=== PATIENT | female | born 1950 | race Caucasian/White ===

== ENCOUNTER 2019-08-06 14:56 | Outpatient (CLI) | payer MEDICARE, OTHER, SELFPAY ==
--- NOTE | 2019-08-06 15:37 | MM_ITS ---
WS: [id number] BILATERAL SCREENING DIGITAL MAMMOGRAM WITH CAD HISTORY: SCREENING COMPARISON: 06/05/2018 and 05/16/2017 Bilateral CC and MLO views submitted. Computer aided detection analyzed. Breast composition: The breasts are heterogeneously dense, which may obscure small masses. No suspici ous masses, microcalcifications or architectural distortion. Asymmetries are stable within each breas t. MM/[place] [id number] IMPRESSION: BI-RADS: 2-Benign FOLLOW UP: 1 Year Follow-up
== END 2019-08-06 14:57 | disposition home or self-care (01) ==
LOC: RADSHAW 15:10
PROVIDERS: Family Provider Family Medicine; PCP Family Medicine; Visit Provider Family Medicine
DX: Z12.31 Encounter for screening mammogram for malignant neoplasm of breast (principal)
CPT/HCPCS: 77067

== ENCOUNTER → 2019-09-26 10:38 | Outpatient (BNVA) | payer MEDICARE, OTHER, SELFPAY | PROVIDERS: Family Provider Family Medicine; PCP Family Medicine; Visit Provider Nurse Practitioner Family | DX: J02.9 Acute pharyngitis, unspecified (principal); J06.9 Acute upper respiratory infection, unspecified; B96.89 Other specified bacterial agents as the cause of diseases classified elsewhere | CPT/HCPCS: 87081; 87804; 87880 ==

== ENCOUNTER 2020-08-08 09:02 | Outpatient (CLI) | payer MEDICARE, OTHER, SELFPAY ==
--- NOTE | 2020-08-08 09:06 | MM_ITS ---
WS: [id number] BILATERAL DIGITAL SCREENING MAMMOGRAPHY WITH CAD CLINICAL INFORMATION: SCREENING HISTORY: Screening mammogram. No current complaints. COMPARISON: August 06, 2019 TECHNIQUE: Bilateral CC and MLO views. FINDINGS: Scattered fibroglandular densities bilaterally. No suspicious focal mass, asymmetry, calcifications, or architectural distortion. No evidence of malignancy. Punctate calcifications. MM/[place] [id number] IMPRESSION: BI-RADS: 2-Benign FOLLOW UP: 1 Year Follow-up Recommend return to annual screening mammography.
== END 2020-08-08 09:03 | disposition home or self-care (01) ==
LOC: RADSHAW 09:05
PROVIDERS: Family Provider Family Medicine; PCP Family Medicine; Visit Provider Family Medicine
DX: Z12.31 Encounter for screening mammogram for malignant neoplasm of breast (principal)
CPT/HCPCS: 77067

== ENCOUNTER 2021-05-16 10:48 | Emergency (ER) | payer MEDICARE, OTHER, SELFPAY ==
[2021-05-16 10:49] VITALS: BP 138/79; PULSE 60; RESP 20; TEMP 36.8; O2SAT 90; BMI 31.8
--- NOTE | 2021-05-16 11:01 | XR_ITS ---
WS: [id number] XR chest 1V portable [id number] REASON FOR EXAM: dyspnea/cough FINDINGS: Suboptimal inspiration. Moderate tortuosity and ectasia of the thoracic aorta. Normal heart size. Equivocal infiltrative opacities in the left lung base. Accentuated by poor inspiratory effort. No other significant chest abnormality. XR/XR chest 1V portable [id number] IMPRESSION: Possible infiltrative change in the left lower lung. Follow-up examination [place]adwick mmended.
[2021-05-16 11:02] LABS: Glucose Point of Care 125 mg/dL (70-110)
--- NOTE | 2021-05-16 11:03 | ECG_ITS ---
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 Measurements Intervals [place] Rate: 61 P: 41 VT: 196 QRS: -1 QRSD: 90 T: 53 QT: 436 QTc: 441 Interpretive Statements SINUS RHYTHM LOW QRS VOLTAGE IN PRECORDIAL LEADS [QRS DEFLECTION < 1.0 mV IN CHEST LEADS] POSSIBLE ANTERIOR MYOCARDIAL INFARCTION , PROBABLY OLD [30 ms Q WAVE IN V3/V4, OR R < 0.2 mV IN V4] No previous ECG available for comparison Electronically Signed On 05-16-2021 19:57:11 CDT by Carleen Shanks M.D. [id number] f
--- NOTE | 2021-05-16 11:04 | CT_ITS ---
WS: [id number] CT HEAD NONCONTRAST HISTORY: slurred speech TECHNIQUE: Contiguous axial imaging performed through the brain in 2.5 mm imaging. Bone and soft tiss ue windows. Sagittal and coronal reformats reviewed. All CT scans at [facility] use at least one of these dose optimization techniques: automated exposure control; mA and/or kV adjustment per pa tient size (includes targeted exams where dose is matched to clinical indication); or iterative recon struction. DLP: 808.81 mGy.cm COMPARISON: None available. No acute intracranial hemorrhage, midline shift or mass effect. No atrophy or prior infarcts or herniation. Mild ectopia of the cerebellar tonsils. No Chiari malfor mation. Ventricles: Normal size with no hydrocephalus. Paranasal sinuses: As visualized are clear. Mastoid air cells: Well pneumatized. Calvarium and scalp: Skull is intact with no soft tissue edema or swelling. CT/CT head wo con* [id number] IMPRESSION: 1. No acute intracranial hemorrhage or edema. 2. Very mild cerebellar ectopia without Chiari malformation.
--- NOTE | 2021-05-16 11:05 | ED_ITS ---
HPI - Syncope General: Chief Complaint: Syncope Stated Complaint: SYNCOPAL EPISODES Time Seen by Provider: 05/16/21 10:51 History of Present Illness: HPI narrative: 70-year-old female had a syncopal episode while at school. 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 She had a full loss of consciousness. She arrived in the emergency room by private vehicle she is complaining lightheaded dizzy is somewhat sedate. She is able to answer all questions. She did have a little bit of chest discomfort associated with this no radiation into the neck or arm no shortness of breath. MD complaint: loss of consciousness Onset (ago): minute(s) Prodromal symptoms: lightheaded and palpitations Witnessed: Yes - by Bystander Context: standing up Injuries sustained associated with event: none Associated symptoms: Reports chest pain and weakness; Deny abdominal pain, fever(s), headache(s), lightheadedness, nausea, short of breath or vertigo History: previous syncopal episode Treatments prior to arrival: none Review of Systems Const: Denies: fever(s) ENMT: Denies: throat pain, ear or mastoid pain, nasal discharge or nasal congestion Card: Reports: chest pain; Denies: lightheadedness Resp: Denies: dyspnea, productive cough or non-productive cough GI: Denies: abdominal pain or nausea : Denies: flank pain, difficulty voiding, dysuria, urinary frequency or urinary urgency Skin/Breast: Denies: rash or pruritus Neuro: Denies: headache(s) or vertigo [facility] ED PFSH: Medical History Acquired keratosis [keratoderma] palmaris et plantaris Hypercholesteremia Social History Smoking and tobacco status: never smoked Physical Exam Const: COMMON NORMALS: no acute distress GENERAL APPEARANCE: cooperative and comfortable ORIENTATION/CONSCIOUSNESS: Yes awake, Yes oriented to person, Yes oriented to place and Yes oriented to time HENMT: COMMON NORMALS: normocephalic, atraumatic and hearing grossly normal bilaterally HEAD & SCALP: normocephalic and atraumatic Eye: COMMON NORMALS: Equal, round and reactive pupils present, EOMs intact bilaterally, conjunctivae normal and no scleral icterus CONJUNCTIVA: Yes conjunctivae normal PUPIL: Yes Equal, round and reactive pupils present Neck/C-Spine: COMMON NORMALS: full ROM, no lymphadenopathy, supple and no JVD Lymph: LYMPHATIC: no lymphadenopathy noted and no lymphedema noted Resp: COMMON NORMALS: normal respiratory effort, No retractions, No use of accessory muscles and clear to auscultation bilaterally AUSCULTATION: clear to auscultation bilaterally Cardio: COMMON NORMALS: no JVD, regular rate, regular rhythm and No murmurs present (Cardio) RATE: regular rate RHYTHM: regular rhythm GI: COMMON NORMALS: Soft to palpation and No hepatosplenomegaly present AUSCULTATION: Yes normoactive bowel sounds PALPATION: Yes Soft to palpation, No Tenderness to palpation present (GI), No Guarding due to palpation present (GI) and Yes No hepatosplenomegaly present Extremity: COMMON NORMALS: normal to inspection, capillary refill normal, no clubbing, cyanosis or edema, no calf tenderness and no pedal edema Neuro: SENSORIUM/ORIENTATION: Yes oriented to person, Yes oriented to place and Yes oriented to time Skin: COMMON NORMALS: no rashes or lesions noted GENERAL SKIN EXAM: no rashes or lesions noted Course Vital Signs: Vital signs: Vital Signs Temperature 98.2 F 05/16/21 10:49 Pulse Rate 59 L 05/16/21 14:35 Respiratory Rate 14 05/16/21 12:33 Blood Pressure 134/88 05/16/21 14:35 Pulse Oximetry 94 05/16/21 14:35 MDM - Syncope MDM Narrative: Medical decision making narrative: Reviewed labs imaging EKG. Patient awake alert oriented has no symptoms at all improved after fluids is up and ambulatory that difficulty discharge her home avoid exertional activities. We will set her up for a Holter monitor and an outpatient cardiac stress test if she has any worsening problems return to the emergency Lab Data: Labs: Lab Results 05/16/21 05/16/21 05/16/21 10:57 10:57 10:57 WBC 9.2 10^3/uL 10^3/ uL (4.0-10.0) RBC 5.07 10^6/uL 10^6 /uL (4.1-5.3) Hgb 14.9 g/dL g/dL (11.5-15.3) Hct 43.6 % % (37.0-47.0) MCV 86.0 fl fl (81-99) MCH 29.4 pg pg (28.0-34.0) MCHC 34.2 g/dL g/dL (30.0-36.0) RDW 12.6 % % (12.1-15.1) Plt Count 286 10^3/cmm 10^3 /cmm (130-400) MPV 10.7 fL H fL (7.4-10.4) Neut % (Auto) 66.2 % % Lymph % (Auto) 24.3 % % [place] % (Auto) 6.6 % % Eos % (Auto) 1.7 % % Baso % (Auto) 1.0 % % Neut # (Auto) 6.11 10^3/uL 10^3 /uL (1.8-7.7) Lymph # (Auto) 2.2 10^3/uL 10^3/ uL (0.8-4.8) [place] # (Auto) 0.6 10^3/uL 10^3/ uL (0.2-0.9) Eos # (Auto) 0.2 10^3/uL 10^3/ uL (0.0-0.8) Baso # (Auto) 0.1 10^3/uL 10^3/ uL (0.0-0.1) Nucleated RBC % (a uto) 0 % % Nucleated RBCs # 0.0 /100WBC /100W BC Specimen Type Sample Site ABG pH ABG pCO2 ABG pO2 ABG HCO3 ABG O2 Saturation ABG Base Excess Braayn Test A-a O2 Gradient Hematocrit Hgb O2 Saturation Carboxyhemoglobin Methemoglobin Total Hemoglobin Ionized Calcium O2 Delivery Device O2 Liters/Min FiO2 Tying Machine Operator ID Sodium 135 mmol/L L mmol /L (136-145) Potassium 4.0 mmol/L mmol/L (3.5-5.1) Chloride 97 mmol/L L mmol/ L (98-107) Carbon Dioxide 25 mmol/L mmol/L (22-29) Anion Gap 17.0 (5-19) BUN 11 mg/dL mg/dL (8-23) Creatinine 0.6 mg/dL mg/dL (0.5-0.9) GFR Calculation 99.1 mL/min mL/mi n (90-130) Glucose 118 mg/dL H mg/dL (65-115) POC Glucose Calculated Osmolal ity 280 mOsm/kg L mOs m/kg (285-295) Calcium 9.6 mg/dL mg/dL (8.5-10.5) Magnesium 1.8 mg/dL mg/dL (1.7-2.3) Total Bilirubin 0.9 mg/dL mg/dL (0.15-1.2) AST 26 U/L U/L (0-32) ALT 27 U/L U/L (0-33) Alkaline Phosphata se 118 IU/L H IU/L (35-105) Troponin T Baselin e 6 ng/L ng/L (0-10) Troponin T 120 Min bethany Delta Troponin T Total Protein 6.6 g/dL g/dL (6.6-8.7) Albumin 4.3 g/dL g/dL (3.5-5.2) Globulin 2.3 g/dL g/dL (1.3-4.6) 05/16/21 05/16/21 05/16/21 10:58 11:20 13:00 WBC RBC Hgb Hct MCV MCH MCHC RDW Plt Count MPV Neut % (Auto) Lymph % (Auto) [place] % (Auto) Eos % (Auto) Baso % (Auto) Neut # (Auto) Lymph # (Auto) [place] # (Auto) Eos # (Auto) Baso # (Auto) Nucleated RBC % (a uto) Nucleated RBCs # Specimen Type Arterial Sample Site Radial, left ABG pH 7.44 (7.35-7.45) ABG pCO2 40.2 mmHg mmHg (35-45) ABG pO2 73.5 mmHg L mmHg (80.0-100.0) ABG HCO3 27.5 mmol/L H mmo l/L (22-26) ABG O2 Saturation 95.7 ABG Base Excess 3.2 mmol/L H mmol /L (-2.0-2.0) Braayn Test Pos A-a O2 Gradient 9.8 mmHg mmHg (5-10) Hematocrit 45.5 % % (37-47) Hgb O2 Saturation 94.7 % L % (95-100) Carboxyhemoglobin 0.7 %THgb %THgb (0.4-20.1) Methemoglobin 0.3 % L % (0.4-1.5) Total Hemoglobin 14.9 g/dL g/dL (12-16) Ionized Calcium 1.2 mmol/L mmol/L (1.1-1.4) O2 Delivery Device Nc O2 Liters/Min 2.0 % % FiO2 28.0 % % Tying Machine Operator ID [place] Sodium 136.0 mmol/L mmol /L (131-143) Potassium 3.7 mmol/L mmol/L (3.5-5.0) Chloride Carbon Dioxide Anion Gap BUN Creatinine GFR Calculation Glucose 124.0 mg/dL H mg/ dL (70-115) POC Glucose 125 mg/dL H mg/dL (70-110) Calculated Osmolal ity Calcium Magnesium Total Bilirubin AST ALT Alkaline Phosphata se Troponin T Baselin e Troponin T 120 Min bethany 6.89 ng/L ng/L (0-10) Delta Troponin T 0.89 ABS# ABS# (0-10) Total Protein Albumin Globulin Discharge Plan Discharge Patient Disposition: Home Clinical Impression: Syncopal episodes Condition: Stable Prescriptions: No Action melatonin 3 mg capsule 3 mg PO BID RF: 0 mupirocin 2 % ointment 1 applic topical BID Qty: 22 RF: 1 clobetasol 0.05 % ointment 1 applic topical BID 14 Days Qty: 45 RF: 1 Discharge Orders: Discharge ED (Routine); Ordered 05/16/21 Ordered By: Lyndon Bee Referrals: Marcelino Her MD [Primary Care Provider] - Discharge Diet: Usual diet Discharge Activity: Resume usual activity Patient Instructions: Opioid Safety Coding Level of Care Code ED Sustainment Logistics Analyst for Chg Fwd Exam Comprehensive
[2021-05-16 11:08] LABS: Basophils # 0.1 10^3/uL (0.0-0.1); Eosinophils # 0.2 10^3/uL (0.0-0.8); Eosinophils % 1.7 %; Hematocrit 43.6 % (37.0-47.0); Hemoglobin 14.9 g/dL (11.5-15.3); Lymphocytes # 2.2 10^3/uL (0.8-4.8); Lymphocytes % 24.3 %; Mean Corpuscular HGB Conc 34.2 g/dL (30.0-36.0); Mean Corpuscular Hemoglobin 29.4 pg (28.0-34.0); Mean Platelet Volume 10.7 fL (7.4-10.4); Monocytes # 0.6 10^3/uL (0.2-0.9); Monocytes % 6.6 %; Neutrophils # 6.11 10^3/uL (1.8-7.7); Neutrophils % 66.2 %; Nucleated Red Blood Cells % 0 %; Platelet Count 286 10^3/cmm (130-400); Red Blood Count 5.07 10^6/uL (4.1-5.3); Red Cell Distribution Width 12.6 % (12.1-15.1); White Blood Count 9.2 10^3/uL (4.0-10.0)
[2021-05-16 11:31] LABS: ABG PCO2 40.2 mmHg (35-45); ABG PH Result 7.44 (7.35-7.45); Arterial Blood Gas Hematocrit 45.5 % (37-47); Base Excess ABG 3.2 mmol/L (-2.0-2.0); Blood Gas Allen Test Pos; Blood Gas Sample Type Arterial; Carboxyhemoglobin 0.7 %THgb (0.4-20.1); HCO3 ABG 27.5 mmol/L (22-26); HGB O2 Sat 94.7 % (95-100); Ionized Calcium Level - ABG 1.2 mmol/L (1.1-1.4); Methemoglobin 0.3 % (0.4-1.5); Oxygen Saturation ABG 95.7; PO2 ABG 73.5 mmHg (80.0-100.0); Potassium Level - ABG 3.7 mmol/L (3.5-5.0); Total Hemoglobin 14.9 g/dL (12-16)
[2021-05-16 11:34] LABS: Alveolar-Arterial Oxygen Gradi 9.8 mmHg (5-10); Blood Gas Operator Identificat MONRO; Blood Gas Sample Site Radial, left; Oxygen Device NC
[2021-05-16 11:44] LABS: Alanine Aminotransferase 27 U/L (0-33); Albumin Level 4.3 g/dL (3.5-5.2); Alkaline Phosphatase 118 IU/L (35-105); Aspartate Amino Transferase 26 U/L (0-32); Blood Urea Nitrogen 11 mg/dL (8-23); Calcium 9.6 mg/dL (8.5-10.5); Carbon Dioxide 25 mmol/L (22-29); Chloride 97 mmol/L (98-107); Creatinine Clr Calc Pharmacy 67.1591; Globulin 2.3 g/dL (1.3-4.6); Glomerular Filtration Rate 99.1 mL/min (90-130); Glucose 118 mg/dL (65-115); Magnesium 1.8 mg/dL (1.7-2.3); Osmolality Calculated 280 mOsm/kg (285-295); Sodium 135 mmol/L (136-145); Total Bilirubin 0.9 mg/dL (0.15-1.2); Total Protein 6.6 g/dL (6.6-8.7)
[2021-05-16 11:50] LABS: Troponin(5th) Baseline 6 ng/L (0-10)
[2021-05-16 12:21] VITALS: BP 116/75; BP 131/78; BP 134/79; PULSE 61; PULSE 71
[2021-05-16] MEDS: sodium chloride 0.9% 1,000 ML 999 ML IV (12:29)
[2021-05-16 12:33] VITALS: BP 137/76; PULSE 59; RESP 14; O2SAT 96
--- NOTE | 2021-05-16 13:03 | ECG_ITS ---
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 Measurements Intervals [place] Rate: 60 P: 38 CT: 204 QRS: 2 QRSD: 100 T: 71 QT: 455 QTc: 457 Interpretive Statements SINUS RHYTHM LOW QRS VOLTAGE IN PRECORDIAL LEADS [QRS DEFLECTION < 1.0 mV IN CHEST LEADS] INCOMPLETE RIGHT BUNDLE BRANCH BLOCK [90+ ms QRS DURATION, TERMINAL R IN V1/V2, 40+ ms S IN I/aVL/V4/V5/V6] Compared to ECG 05/16/2021 10:56:47 Incomplete right bundle-branch block now present Myocardial infarct finding no longer present Electronically Signed On 05-16-2021 20:13:10 CDT by Carleen Shanks M.D. [id number]
[2021-05-16 13:53] LABS: Troponin 5 2HR 6.89 ng/L (0-10); Troponin 5 2HR Delta 0.89 ABS# (0-10)
[2021-05-16 13:54] VITALS: BP 129/79; PULSE 62; O2SAT 99
[2021-05-16 14:35] VITALS: BP 134/88; PULSE 59; O2SAT 94
--- NOTE | 2021-05-22 12:33 | DCPLANNER ---
human resources safety manager had message to schedule a follow up appointment for patient for a 48 hour holter monitor. human resources safety manager faxed signed order to heart care. The heart care clinic will call patient with appointment information.
--- NOTE | 2021-06-14 14:38 | DCPLANNER ---
Patient had an appointment with heart care on 21 - patient did attend appointment.
== END 2021-05-16 14:35 | disposition home or self-care (01) ==
PROVIDERS: Emergency Provider Family Medicine; PCP Family Medicine
DX: R55 Syncope and collapse (principal)
CPT/HCPCS: 36416; 36600; 70450; 71045; 80051; 80053; 82330; 82805; 82962; 83735; 84484; 85025; 93005; 96360; 99284; J7030

== ENCOUNTER 2021-10-29 13:34 | Outpatient (CLI) | payer MEDICARE, OTHER, SELFPAY ==
--- NOTE | 2021-10-29 13:46 | MM_ITS ---
WS: [id number] BILATERAL 3D TOMOSYNTHESIS DIGITAL SCREENING MAMMOGRAPHY WITH CAD CLINICAL INFORMATION: SCREENING HISTORY: Screening mammogram. No current complaints. COMPARISON: August 08, 2020 TECHNIQUE: Bilateral CC and MLO views. FINDINGS: Scattered fibroglandular densities bilaterally. Stable axillary lymph nodes. A few stable intramammar y lymph nodes. A few incidental punctate calcifications. No suspicious focal mass, asymmetry, calcifi cations, or architectural distortion. No evidence of malignancy. MM/[place] [id number] IMPRESSION: BI-RADS: 2-Benign FOLLOW UP: 1 Year Follow-up Recommend return to annual screening mammography.
== END 2021-10-29 13:35 | disposition home or self-care (01) ==
LOC: RAD 13:39
PROVIDERS: PCP Family Medicine; Visit Provider Family Medicine
DX: Z12.31 Encounter for screening mammogram for malignant neoplasm of breast (principal)
CPT/HCPCS: 77063; 77067

== ENCOUNTER 2022-05-22 20:00 | Outpatient (CLI) | payer MEDICARE, OTHER, SELFPAY | END 2022-05-22 20:01 | disposition home or self-care (01) | LOC: SLEEP 05-23 09:08 | PROVIDERS: PCP Family Medicine; Visit Provider Family Medicine | DX: G47.10 Hypersomnia, unspecified (principal); R06.83 Snoring; R53.83 Other fatigue; G47.33 Obstructive sleep apnea (adult) (pediatric) | CPT/HCPCS: 95810 ==

== ENCOUNTER 2022-07-10 20:00 | Outpatient (CLI) | payer MEDICARE, OTHER, SELFPAY | END 2022-07-10 20:01 | disposition home or self-care (01) | LOC: SLEEP 07-11 07:12 | PROVIDERS: PCP Family Medicine; Visit Provider Family Medicine | DX: G47.33 Obstructive sleep apnea (adult) (pediatric) (principal) | CPT/HCPCS: 95811 ==

== ENCOUNTER 2022-09-25 02:37 | Emergency (ER) | payer MEDICARE, OTHER, SELFPAY ==
--- NOTE | 2022-09-25 02:40 | XRR_ITS ---
PROCEDURE INFORMATION: Exam: XR Chest Exam date and time: 09/25/2022 3:09 AM Age: 71 years old Clinical indication: Pain; Chest pressure; Patient HX: C/O chest discomfort x 2 days. ; Additional info: Cp TECHNIQUE: Imaging protocol: Radiologic exam of the chest. Views: 1 view. COMPARISON: CR XR chest 2V* [id number] 07/02/2021 1:35 PM FINDINGS: Lungs: No consolidation. Similar appearing mild bilateral chronic interstitial changes. Pleural spaces: No pleural effusion. No pneumothorax. Heart/Mediastinum: No cardiomegaly. Bones/joints: No acute fracture. Soft tissues: There is a 2.2 cm x 0.5 cm tubular density projecting over the left lateral thorax which likely represents superimposed foreign body external to the patient, correlate clinically. XR/XR chest 1V portable [id number] IMPRESSION: No acute cardiopulmonary findings.
[2022-09-25 02:48] VITALS: BP 143/102; PULSE 62; RESP 17; TEMP 36.4; O2SAT 95; BMI 34.0
--- NOTE | 2022-09-25 02:55 | W.ED.CHESTPA ---
HPI - Chest Pain General: Chief Complaint: Chest Pain Stated Complaint: Chest Pains Time Seen by Provider: 09/25/22 02:40 Source: patient Mode of arrival: ambulatory Limitations: no limitations History of Present Illness: 71-year-old female who states she been having some chest pain since yesterday morning she states it was improved today but then tonight she started having a dull ache in the center of her chest states pain is currently 2 out of 10 she had shortness of breath yesterday morning denies any shortness of breath currently denies any diaphoresis denies any nausea. She denies any worsening proving factors. She had no vomiting. Associated symptoms: Deny abdominal pain, dyspnea, fever(s), nausea or vomiting Review of Systems Const: Denies: fever(s), chills, body aches or change in appetite Eyes: Denies: blurry vision or eye discomfort ENMT: Denies: throat pain or dental pain Card: Reports: chest pain Resp: Denies: dyspnea GI: Denies: abdominal pain, nausea, vomiting or diarrhea : Denies: dysuria Musc: Denies: neck pain or back pain Skin/Breast: Denies: rash Neuro: Denies: headache(s) Psych: Denies: depression Clifford/Lymph: Denies: easy bruising All/Imm: Denies: urticaria PFSH ED PFSH: Medical History Acquired keratosis [keratoderma] palmaris et plantaris Hypercholesteremia Social History Smoking and tobacco status: never smoked Physical Exam Const: COMMON NORMALS: no acute distress, patient oriented x3 and healthy appearing HENMT: COMMON NORMALS: normocephalic and atraumatic HEAD & SCALP: normocephalic and atraumatic Eye: COMMON NORMALS: Equal, round and reactive pupils present and EOMs intact bilaterally PUPIL: Yes Equal, round and reactive pupils present Neck/C-Spine: COMMON NORMALS: full ROM and supple Chest: COMMONS NORMALS: normal inspection of the chest and normal palpation of entire chest wall Resp: COMMON NORMALS: normal respiratory effort, No retractions, No use of accessory muscles and clear to auscultation bilaterally AUSCULTATION: clear to auscultation bilaterally Cardio: COMMON NORMALS: regular rate, regular rhythm and No murmurs present (Cardio) RATE: regular rate RHYTHM: regular rhythm GI: COMMON NORMALS: Normal to inspection, nondistended, normoactive bowel sounds present, Soft to palpation, non-tender and no masses PALPATION: Yes Soft to palpation Extremity: COMMON NORMALS: normal to inspection and full ROM Neuro: COMMON NORMALS: patient oriented x3, moves all extremities and no focal motor deficits Psych: COMMON NORMALS: mental status grossly normal, Normal thought process present and cooperative THOUGHT PROCESS: Normal thought process present Skin: COMMON NORMALS: no rashes or lesions noted and no wounds GENERAL SKIN EXAM: no rashes or lesions noted Course Vital Signs: Vital signs: Vital Signs Temperature 97.6 F 09/25/22 02:48 Pulse Rate 56 L 09/25/22 05:53 Respiratory Rate 16 09/25/22 05:53 Blood Pressure 104/67 09/25/22 05:53 Pulse Oximetry 97 09/25/22 05:53 Oxygen Delivery Me thod 09/25/22 04:30 Oxygen Flow Rate 2 09/25/22 04:30 MDM - Chest Pain Medical Decision Making Patient presents for chest pain is atypical in nature her EKG and troponins here are normal her pain has been resolved she is stable for discharge she is to follow-up with her PCP and return if worsening she understands agrees to plan. Lab Data 09/25/22 02:55 09/25/22 02:55 Radiology Impressions Chest X-Ray 09/25/22 02:40 IMPRESSION: No acute cardiopulmonary findings. Laboratory Results WBC 10.2 10^3/uL (4.0-10.0) H 09/25/22 02:55 RBC 5.13 10^6/uL (4.1-5.3) 09/25/22 02:55 Hgb 14.9 g/dL (11.5-15.3) 09/25/22 02:55 Hct 45.9 % (37.0-47.0) 09/25/22 02:55 MCV 89.5 fl (81-99) 09/25/22 02:55 MCH 29.0 pg (28.0-34.0) 09/25/22 02:55 MCHC 32.5 g/dL (30.0-36.0) 09/25/22 02:55 RDW 12.4 % (12.1-15.1) 09/25/22 02:55 Plt Count 299 10^3/cmm (130-400) 09/25/22 02:55 MPV 10.6 fL (7.4-10.4) H 09/25/22 02:55 Neut % (Auto) 57.9 % 09/25/22 02:55 Lymph % (Auto) 29.0 % 09/25/22 02:55 [place] % (Auto) 8.7 % 09/25/22 02:55 Eos % (Auto) 2.8 % 09/25/22 02:55 Baso % (Auto) 1.2 % 09/25/22 02:55 Neut # (Auto) 5.92 10^3/uL (1.8-7.7) 09/25/22 02:55 Lymph # (Auto) 3.0 10^3/uL (0.8-4.8) 09/25/22 02:55 [place] # (Auto) 0.9 10^3/uL (0.2-0.9) 09/25/22 02:55 Eos # (Auto) 0.3 10^3/uL (0.0-0.8) 09/25/22 02:55 Baso # (Auto) 0.1 10^3/uL (0.0-0.1) 09/25/22 02:55 Nucleated RBC % (auto) 0 % 09/25/22 02:55 Nucleated RBCs # 0.0 /100WBC 09/25/22 02:55 Sodium 138 mmol/L (136-145) 09/25/22 02:55 Potassium 4.4 mmol/L (3.5-5.1) 09/25/22 02:55 Chloride 102 mmol/L (98-107) 09/25/22 02:55 Carbon Dioxide 24 mmol/L (22-29) 09/25/22 02:55 Anion Gap 16.4 (5-19) 09/25/22 02:55 BUN 14 mg/dL (8-23) 09/25/22 02:55 Creatinine 0.6 mg/dL (0.5-0.9) 09/25/22 02:55 GFR Calculation 98.8 mL/min (90-130) 09/25/22 02:55 Glucose 101 mg/dL (65-115) 09/25/22 02:55 Calculated Osmolality 287 mOsm/kg (285-295) 09/25/22 02:55 Calcium 9.7 mg/dL (8.5-10.5) 09/25/22 02:55 Total Bilirubin 0.6 mg/dL (0.15-1.2) 09/25/22 02:55 AST 25 U/L (0-32) 09/25/22 02:55 ALT 24 U/L (0-33) 09/25/22 02:55 Alkaline Phosphatase 146 U/L (35-105) H 09/25/22 02:55 Troponin T Baseline 10 ng/L (0-10) 09/25/22 02:55 Troponin T 120 Minute 7.47 ng/L (0-10) 09/25/22 04:55 Delta Troponin T -2.53 ABS# (0-10) L 09/25/22 04:55 Total Protein 6.8 g/dL (6.6-8.7) 09/25/22 02:55 Albumin 4.2 g/dL (3.5-5.2) 09/25/22 02:55 Globulin 2.6 g/dL (1.3-4.6) 09/25/22 02:55 EKG Data EKG 1: I personally reviewed and interpreted this EKG as follows: EKG interpretation date: 09/25/22 EKG interpretation time: 03:03 Interpretation: nsr hr [address] or t wave abnormalities qrs 89 qtc 429 Discharge Plan Discharge Patient Disposition: Home Clinical Impression: Chest pain Condition: Stable Prescriptions: No Action melatonin 3 mg capsule 3 mg PO BID mupirocin 2 % ointment 1 applic topical BID Qty: 22 1RF Rx Instructions: Apply BID to fissure on heel until healed atorvastatin 80 mg tablet 80 mg PO alprazolam 0.25 mg tablet 0.25 mg PO clobetasol 0.05 % ointment 1 applic topical BID 14 Days Qty: 45 1RF Rx Instructions: Apply to affected areas on hands/feet BID no more than 2wks/moo prn tretinoin 0.1 % cream 1 applic topical DAILY Qty: 45 4RF Rx Instructions: (RETIN-A) Apply pea-sized amount to face, chest, and back nightly Discharge Orders: Discharge ED (Routine); Ordered 09/25/22 Ordered By: Giles Jay Referrals: Marcelino Her MD [Primary Care Provider] - 1-3 days Discharge Diet: Advance as tolerated Discharge Activity: Resume usual activity Patient Instructions: Chest Pain (ED) Coding Level of Care Code ED Property Maintenance Supervisor for Lucretia Bernard
--- NOTE | 2022-09-25 03:03 | ECG_ITS ---
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 Measurements Intervals [place] Rate: 61 P: 41 [place]: 197 QRS: -17 QRSD: 89 T: 22 QT: 425 QTc: 431 Interpretive Statements SINUS RHYTHM LOW QRS VOLTAGE IN PRECORDIAL LEADS [QRS DEFLECTION < 1.0 mV IN CHEST LEADS] POSSIBLE ANTERIOR MYOCARDIAL INFARCTION , PROBABLY OLD [30 ms Q WAVE IN V3/V4, OR R < 0.2 mV IN V4] Compared to ECG 05/16/2021 13:51:36 Myocardial infarct finding now present Incomplete right bundle-branch block no longer present Electronically Signed On 09-25-2022 10:24:38 CREDIT CONTROL ADMINISTRATOR by Josesito Beard M.D. [id number]
[2022-09-25] MEDS: aspirin 81 mg Chew Tablet 324 MG PO (03:06)
[2022-09-25] MEDS: nitroglycerin 0.4 mg sublingual Tablet SUBLINGUAL (03:06)
[2022-09-25 03:12] LABS: Basophils # 0.1 10^3/uL (0.0-0.1); Basophils % 1.2 %; Eosinophils # 0.3 10^3/uL (0.0-0.8); Eosinophils % 2.8 %; Hematocrit 45.9 % (37.0-47.0); Hemoglobin 14.9 g/dL (11.5-15.3); Mean Corpuscular HGB Conc 32.5 g/dL (30.0-36.0); Mean Corpuscular Volume 89.5 fl (81-99); Mean Platelet Volume 10.6 fL (7.4-10.4); Monocytes # 0.9 10^3/uL (0.2-0.9); Monocytes % 8.7 %; Neutrophils # 5.92 10^3/uL (1.8-7.7); Neutrophils % 57.9 %; Nucleated Red Blood Cells % 0 %; Platelet Count 299 10^3/cmm (130-400); Red Blood Count 5.13 10^6/uL (4.1-5.3); Red Cell Distribution Width 12.4 % (12.1-15.1); White Blood Count 10.2 10^3/uL (4.0-10.0)
--- NOTE | 2022-09-25 03:16 | ECG_ITS ---
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 Measurements Intervals [place] Rate: 44 P: 41 [place]: 199 QRS: -13 QRSD: 90 T: 52 QT: 467 QTc: 401 Interpretive Statements SINUS BRADYCARDIA LOW QRS VOLTAGE IN PRECORDIAL LEADS [QRS DEFLECTION < 1.0 mV IN CHEST LEADS] POSSIBLE ANTERIOR MYOCARDIAL INFARCTION , PROBABLY OLD [30 ms Q WAVE IN V3/V4, OR R < 0.2 mV IN V4] Compared to ECG 09/25/2022 03:03:58 Sinus rhythm no longer present Myocardial infarct finding still present Electronically Signed On 09-25-2022 10:29:18 ED TEACHER by Josesito Beard M.D. [id number]
[2022-09-25] MEDS: sodium chloride 0.9% 1,000 ML 999 ML IV (03:20)
[2022-09-25 03:30] VITALS: BP 112/67; PULSE 57; RESP 18; O2SAT 93
[2022-09-25 03:33] LABS: Troponin(5th) Baseline 10 ng/L (0-10)
[2022-09-25 03:38] LABS: Alanine Aminotransferase 24 U/L (0-33); Albumin Level 4.2 g/dL (3.5-5.2); Alkaline Phosphatase 146 U/L (35-105); Anion Gap 16.4 (5-19); Aspartate Amino Transferase 25 U/L (0-32); Blood Urea Nitrogen 14 mg/dL (8-23); Calcium 9.7 mg/dL (8.5-10.5); Carbon Dioxide 24 mmol/L (22-29); Chloride 102 mmol/L (98-107); Globulin 2.6 g/dL (1.3-4.6); Glomerular Filtration Rate 98.8 mL/min (90-130); Glucose 101 mg/dL (65-115); Osmolality Calculated 287 mOsm/kg (285-295); Potassium 4.4 mmol/L (3.5-5.1); Sodium 138 mmol/L (136-145); Total Bilirubin 0.6 mg/dL (0.15-1.2); Total Protein 6.8 g/dL (6.6-8.7)
[2022-09-25 04:00] VITALS: BP 116/68; PULSE 53; RESP 18; O2SAT 98
[2022-09-25 04:30] VITALS: BP 117/68; PULSE 56; RESP 18; O2SAT 98
[2022-09-25 05:42] LABS: Troponin 5 2HR 7.47 ng/L (0-10)
[2022-09-25 05:43] LABS: Troponin 5 2HR Delta -2.53 ABS# (0-10)
[2022-09-25 05:53] VITALS: BP 104/67; PULSE 56; RESP 16; O2SAT 97
--- NOTE | 2022-09-25 08:40 | ECG_ITS ---
[facility] Test Date: 2022-09-25 Pat Name: Poonam Carter Department: Room: Gender: Female Market Manager: : 1950 Requested By: Giles Jay Order Number: [id number] Wyatt MD: Josesito Beard M.D. Measurements Intervals [place] Rate: 60 P: 48 [place]: 195 QRS: -16 QRSD: 90 T: 29 QT: 425 QTc: 426 Interpretive Statements SINUS RHYTHM LOW QRS VOLTAGE IN PRECORDIAL LEADS [QRS DEFLECTION < 1.0 mV IN CHEST LEADS] POSSIBLE ANTERIOR MYOCARDIAL INFARCTION , PROBABLY OLD [30 ms Q WAVE IN V3/V4, OR R < 0.2 mV IN V4] Compared to ECG 05/16/2021 13:51:36 Myocardial infarct finding now present Incomplete right bundle-branch block no longer present Electronically Signed On 09-25-2022 10:29:21 MERCHANDISE FLOW TEAM MEMBER by Josesito Beard M.D. [id number]
== END 2022-09-25 05:51 | disposition home or self-care (01) ==
PROVIDERS: Emergency Provider Emergency Medicine; PCP Family Medicine
DX: R07.9 Chest pain, unspecified (principal)
CPT/HCPCS: 71045; 80053; 84484; 85025; 93005; 96360; 99285; J7030

== ENCOUNTER 2022-11-08 10:09 | Outpatient (CLI) | payer MEDICARE, OTHER, SELFPAY ==
--- NOTE | 2022-11-08 10:30 | MM_ITS ---
WS: [id number] BILATERAL SCREENING DIGITAL TOMOSYNTHESIS MAMMOGRAM WITH CAD HISTORY: SCREENING COMPARISON: 10/29/2021, 08/08/2020 Bilateral CC and MLO views with tomosynthesis and synthetic mammography submitted. Computer aided det ection analyzed. Breast composition: The breasts are heterogeneously dense, which may obscure small masses. No suspici ous masses, microcalcifications or architectural distortion. Asymmetric soft tissue in the anterior R IGHT breast is similar to prior studies. No discrete mass. MM/[place] [id number] IMPRESSION: BI-RADS: 2-Benign FOLLOW UP: 1 Year Follow-up
== END 2022-11-08 10:10 | disposition home or self-care (01) ==
LOC: RAD 10:14
PROVIDERS: PCP Family Medicine; Visit Provider Family Medicine
DX: Z12.31 Encounter for screening mammogram for malignant neoplasm of breast (principal)
CPT/HCPCS: 77063; 77067

== ENCOUNTER 2023-11-26 11:53 | Outpatient (CLI) | payer MEDICARE, OTHER, SELFPAY ==
--- NOTE | 2023-11-26 11:59 | MM_ITS ---
WS: [id number] BILATERAL 3D TOMOSYNTHESIS DIGITAL SCREENING MAMMOGRAPHY WITH CAD CLINICAL INFORMATION: SCREENING HISTORY: Screening mammogram. No current complaints. COMPARISON: 2022 TECHNIQUE: Bilateral CC and MLO views. FINDINGS: The breasts are composed of heterogeneous fibroglandular density tissue, which can limit the detectio n of small underlying mass lesions. No suspicious mass, asymmetry, calcifications, or architectural d istortion. No evidence of malignancy. Nodular anterior RIGHT breast tissue is unchanged. Few incident al calcifications. Vascular calcifications. IMPRESSION: MM/[place] [id number] BI-RADS: 2-Benign FOLLOW UP: 1 Year Follow-up Recommend return to annual screening mammography.
== END 2023-11-26 11:54 | disposition home or self-care (01) ==
LOC: RAD 11:55
PROVIDERS: PCP Family Medicine; Visit Provider Family Medicine
DX: Z12.31 Encounter for screening mammogram for malignant neoplasm of breast (principal)
CPT/HCPCS: 77063; 77067

== ENCOUNTER → 2023-12-16 14:02 | Outpatient (BNVA) | payer MEDICARE, OTHER, SELFPAY | PROVIDERS: PCP Family Medicine; Visit Provider Dermatology | DX: Q82.8 Other specified congenital malformations of skin (principal); L82.1 Other seborrheic keratosis; L82.0 Inflamed seborrheic keratosis; L81.4 Other melanin hyperpigmentation; L57.8 Other skin changes due to chronic exposure to nonionizing radiation; D18.01 Hemangioma of skin and subcutaneous tissue | CPT/HCPCS: 17110; 99204 ==

== ENCOUNTER → 2024-11-08 14:15 | Outpatient (BNVA) | payer MEDICARE, OTHER, SELFPAY | PROVIDERS: PCP Family Medicine; Visit Provider Podiatrist Foot & Ankle Surgery | DX: M16.0 Bilateral primary osteoarthritis of hip (principal) | CPT/HCPCS: 77073; 99213 ==

== ENCOUNTER 2024-12-03 08:49 | Outpatient (CLI) | payer MEDICARE, OTHER, SELFPAY ==
--- NOTE | 2024-12-03 08:51 | MM_ITS ---
WS: [id number] BILATERAL 3D TOMOSYNTHESIS DIGITAL SCREENING MAMMOGRAPHY WITH CAD CLINICAL INFORMATION: SCREEN HISTORY: Screening mammogram. No current complaints. COMPARISON: None. TECHNIQUE: Bilateral CC and MLO views. FINDINGS: Scattered fibroglandular densities bilaterally. No suspicious focal mass, asymmetry, calcifications, or architectural distortion. No evidence of malignancy. A few incidental punctate and lucent centered calcifications. Vascular calcifications. MM/MM [facility] tomosynthesis [id number] IMPRESSION: DENSITY: There are scattered areas of fibroglandular density. BI-RADS: 2 - Benign. FOLLOW UP: 1 Year Follow-up Recommend return to annual screening mammography.
== END 2024-12-03 08:50 | disposition home or self-care (01) ==
LOC: RAD 08:50
PROVIDERS: PCP Family Medicine; Visit Provider Family Medicine
DX: Z12.31 Encounter for screening mammogram for malignant neoplasm of breast (principal); R92.323 Mammographic fibroglandular density, bilateral breasts; R92.1 Mammographic calcification found on diagnostic imaging of breast
CPT/HCPCS: 77063; 77067

== ENCOUNTER → 2024-12-30 15:46 | Outpatient (BNVA) | payer MEDICARE, OTHER, SELFPAY | PROVIDERS: PCP Family Medicine; Visit Provider Nurse Practitioner Family | DX: Q82.8 Other specified congenital malformations of skin (principal); Z79.899 Other long term (current) drug therapy; L81.9 Disorder of pigmentation, unspecified; L82.1 Other seborrheic keratosis; L81.4 Other melanin hyperpigmentation; D18.01 Hemangioma of skin and subcutaneous tissue | CPT/HCPCS: 99213 ==